=== PATIENT | female | born 1965 | race Caucasian/White ===

== ENCOUNTER 2023-09-21 04:56 | Emergency (ER) | payer BC ==
[~2023-09-21] VITALS: Ht 177.8 cm; Wt 100.0 kg
[2023-09-21 05:02] VITALS: TEMP 98
[2023-09-21] MEDS ORDERED: LORazepam 2 mg/ml vial IV ONE (05:05)
[2023-09-21] MEDS ORDERED: normal saline 1000ML IV soln IVB ONE (05:05)
[2023-09-21 05:25] LABS: BASOPHILS % (AUTO) 0.6 % (0-1); EOSINOPHILS # (AUTO) 0.1 X10'3 (0-0.9); HEMATOCRIT 39.4 % (35.0-45.0); HEMOGLOBIN 13.4 g/dl (12.0-16.0); LYMPHOCYTES # (AUTO) 2.8 X10'3 (1.1-4.8); LYMPHOCYTES % (AUTO) 34.9 % (21-51); MEAN CORPUSCULAR HEMOGLOBIN 30.4 PG (27.0-31.0); MEAN CORPUSCULAR VOLUME 89.4 FL (78-98); MEAN PLATELET VOLUME 8.1 FL (7.4-10.4); MONOCYTES # (AUTO) 0.6 X10'3 (0-0.9); MONOCYTES % (AUTO) 6.9 % (2-12); NEUTROPHILS # (AUTO) 4.5 X10'3 (1.8-7.7); NEUTROPHILS % (AUTO) 56.6 % (42-75); PLATELET COUNT 274 X10'3 (140-440); RED BLOOD COUNT 4.41 X10'6 (4.20-5.60); RED CELL DISTRIBUTION WIDTH 13.9 % (11.5-14.5)
[2023-09-21] MEDS ORDERED: MECL-302 PO (05:43)
[2023-09-21 05:51] LABS: ALBUMIN 3.7 G/DL (3.4-5.0); ANION GAP 8 (8-16); BLOOD UREA NITROGEN 18 MG/DL (7-18); BUN/CREATININE RATIO 23.4 (10.0-20.0); CALCIUM 8.9 MG/DL (8.5-10.1); CHLORIDE 104 MMOL/L (99-107); CREATININE 0.77 MG/DL (0.40-0.90); GLUCOSE 121 MG/DL (70-104); MAGNESIUM 1.7 MG/DL (1.5-2.4); POTASSIUM 3.8 MMOL/L (3.5-5.1); SODIUM 139 MMOL/L (135-145); TOTAL CARBON DIOXIDE 27.3 MMOL/L (24-32); eCRCL 86 ML/MIN; eGFR 77 ML/MIN
[2023-09-21 06:42] VITALS: BP 136/72; PULSE 73; RESP 14; O2SAT 98
== END 2023-09-21 06:43 | disposition home or self-care (01) ==
LOC: ER 04:56
DX: R42 Dizziness and giddiness (principal); R00.2 Palpitations
CPT/HCPCS: 36415; 80048; 83735; 85025; 93005; 96360; 99284; J7030